=== PATIENT | female | born 1985 | race Caucasian/White ===

== ENCOUNTER 2019-11-14 11:54 | Outpatient (RCR) | payer OTHER, SELFPAY ==
[2019-09-25 08:55] LABS: Hematocrit 34.8 % (37.0-47.0); Hemoglobin 11.5 g/dL (12.0-15.0)
[2019-09-25 09:07] LABS: Glucose 1 Hour PP 50gm Dose 124 mg/dL
[2019-09-25 09:47] LABS: HIV 1/2 Ab P24 Ag Result Negative (Negative)
[2019-09-25] MEDS: RHO(D) IMMUNE GLOBULIN 300 MCG SYRINGE IM (13:54)
[2019-11-14 12:28] LABS: Basophils Percent Auto 0.3 % (0.2-1.2); Eosinophils Absolute Auto 0.1 K/mm3 (0-0.3); Eosinophils Percent Auto 0.7 % (0-4.4); Hematocrit 35.3 % (37.0-47.0); Immature Granulocyte Absolute 0.06 K/mm3 (0.00-0.031); Immature Granulocyte Percent A 0.6 % (0-0.5); Lymphocytes Absolute Auto 1.53 K/mm3 (0.9-3.2); Lymphocytes Percent Auto 14.2 % (18.3-44.2); Mean Corpuscular Hemoglobin 30.7 pg (26-34); Mean Corpuscular Volume 90.3 fl (80-100); Monocytes Absolute Auto 0.8 K/mm3 (0.1-0.6); Monocytes Percent Auto 7.2 % (2.6-8.5); Neutrophils Absolute Auto 8.3 K/mm3 (1.3-6.7); Platelet Count Result 229 k/mm3 (150-375); Red Blood Count 3.91 M/mm3 (4.2-5.4); Red Cell Distribution Width 14.3 % (11.5-14.5); White Blood Count 10.8 K/mm3 (4.5-10.0)
[2019-11-14 12:42] LABS: Alanine Aminotransferase 10 U/L (4-35); Albumin Level 3.7 g/dL (3.5-5.1); Alkaline Phosphatase 94 U/L (38-126); Anion Gap 6 mmol/L (8-16); Aspartate Amino Transferase 19 U/L (14-36); Bilirubin,Total 0.2 mg/dL (0.2-1.3); Blood Urea Nitrogen 8 mg/dL (7-17); Carbon Dioxide 21 mmol/L (22-30); Chloride 105 mmol/L (98-107); Estimated Glomerular Filt Rate > 60; Glucose 72 mg/dL (65-105); Potassium 4.2 mmol/L (3.4-5.0); Sodium 132 mmol/L (137-145); Uric Acid 3.9 mg/dL (2.5-7.5)
[2019-11-14 13:02] VITALS: BP 123/72
[2019-11-14 13:09] LABS: Add Urine Microscopic? YES; Appearance Urine Clear (Clear); Bilirubin Urine Negative (Negative); Blood Urine Negative (Negative); Color Urine Colorless (Yellow); Glucose Urine UA Negative (Negative); Ketones Urine Trace mg/dL (Negative); Leukocyte Esterase Ur Negative LEU/UL (NEGATIVE); Mucus Urine Rare /lpf; Nitrate Urine Negative (Negative); Protein Urine Negative (Negative); RBC Urine 0-2 /hpf (0-2); Specific Grav Ur 1.008 (1.001-1.035); Squamous Epithelial Cell Urine Occasional /hpf (Few); Urobilinogen Urine Negative mg/dL (<2.0); WBC Urine 0-3 /hpf (0-3)
[2019-11-14 13:17] LABS: Creatinine Urine 29.1 mg/dL; Total Protein Urine Random 12 mg/dL
== END 2019-12-24 23:59 | disposition home or self-care (01) ==
LOC: ANHLAB 11:54
PROVIDERS: PCP Family Medicine; Visit Provider Obstetrics & Gynecology
DX: Z29.13 Encounter for prophylactic Rho(D) immune globulin (principal); Z11.4 Encounter for screening for human immunodeficiency virus [HIV]; O36.0990 Maternal care for other rhesus isoimmunization, unspecified trimester, not applicable or unspecified; Z3A.00 Weeks of gestation of pregnancy not specified
CPT/HCPCS: 36415; 59025; 80053; 81001; 82570; 82947; 84156; 84550; 85014; 85018; 85025; 85461; 86703; 87086; 90384; 96372; G0432; J2790

== ENCOUNTER 2019-12-04 18:58 | Inpatient (IN) | payer OTHER, SELFPAY ==
[2019-12-04] VITALS (13 sets, daily range): BP systolic 91–132; BP diastolic 61–79; PULSE 81–98; TEMP 36.1–36.2; BMI 35.5
[2019-12-04] MEDS: DINOPROSTONE 10 MG VAG INSERT VAGINAL (20:43)
[2019-12-04 20:49] LABS: Basophils Percent Auto 0.3 % (0.2-1.2); Eosinophils Absolute Auto 0.1 K/mm3 (0-0.3); Eosinophils Percent Auto 0.7 % (0-4.4); Hematocrit 35.8 % (37.0-47.0); Hemoglobin 11.9 g/dL (12.0-15.0); Immature Granulocyte Absolute 0.07 K/mm3 (0.00-0.031); Immature Granulocyte Percent A 0.7 % (0-0.5); Lymphocytes Percent Auto 16.9 % (18.3-44.2); Mean Corpuscular HGB Conc 33.2 g/dl (32-36); Mean Corpuscular Hemoglobin 30.1 pg (26-34); Mean Corpuscular Volume 90.4 fl (80-100); Mean Platelet Volume 10.5 fl (7.4-10.4); Monocytes Absolute Auto 0.8 K/mm3 (0.1-0.6); Monocytes Percent Auto 7.6 % (2.6-8.5); Neutrophils Absolute Auto 7.9 K/mm3 (1.3-6.7); Neutrophils Percent Auto 73.8 % (45.5-73.1); Platelet Count Result 232 k/mm3 (150-375); Red Blood Count 3.96 M/mm3 (4.2-5.4); White Blood Count 10.7 K/mm3 (4.5-10.0)
--- NOTE | 2019-12-04 23:10 | LDADM ---
This patient, Kiki Ferrer, was admitted to Labor/Delivery/Recovery 109 on 12/04/19 at 18:58. Plans for labor, pain management and were discussed with patient. Patient/family oriented to hospital policies and general routines including ID bracelet, bed and alarms, visiting hours, pain management, procedures, bathroom and other care routines, personal items, smoking policy, room service/diet and guest tray routines, security routines, and visiting hours. Patient/Family are encouraged to report perceived risks to care and to ask questions if they do not understand what they are told or what they should do. See OBIX for further documentation.
[2019-12-05] VITALS (71 sets, daily range): BP systolic 79–142; BP diastolic 61–93; PULSE 69–173; RESP 16; TEMP 36.3–36.7; O2SAT 91–100
[2019-12-05] MEDS: OXYTOCIN 30 UNITS/NS 500 ML 30 UNITS/500 ML BAG IV CONT (05:24)
[2019-12-05] MEDS: LACTATED RINGERS 1,000 ML 125 ML IV CONT ×2 (05:24→08:15)
--- NOTE | 2019-12-05 06:25 | WPDANESEPPF ---
Anes - Initial Pre Proc Eval Procedure: labor epidural Date/Time: 12/05/19 06:25 Surgeon: Berhane Amezquita MD Pre Op Diagnosis: labor pain Pre Op Diagnosis: IOL Patient Data Age: 34 Gender: F Height: 1.63 m Weight: 94 kg Last Vital Signs Temp 36.3 C L 12/05/19 05:26 Pulse 73 12/05/19 06:15 BP 122/73 12/05/19 06:15 Allergies Allergy/AdvReac Type Severity Reaction Status Date / Time No Known Allergies Allergy Verified 11/07/19 15:29 Home Medications Medication Instructions Recorded Confirmed Type PNV cmb#95-ferrous fumarate-FA 1 tablet PO DAILY 04/16/19 12/04/19 History [] Laboratory Tests 12/04/19 12/04/19 12/04/19 20:42 20:42 20:42 WBC 10.7 K/mm3 H K/mm3 (4.5-10.0) RBC 3.96 M/mm3 L M/mm3 (4.2-5.4) Hgb 11.9 g/dL L g/dL (12.0-15.0) Hct 35.8 % L % (37.0-47.0) MCV 90.4 fl fl (80-100) MCH 30.1 pg pg (26-34) MCHC 33.2 g/dl g/dl (32-36) RDW 14.0 % % (11.5-14.5) Plt Count 232 k/mm3 k/mm3 (150-375) MPV 10.5 fl H fl (7.4-10.4) Immature Gran % (Auto) 0.7 % H % (0-0.5) Neut % (Auto) 73.8 % H % (45.5-73.1) Lymph % (Auto) 16.9 % L % (18.3-44.2) Vilas % (Auto) 7.6 % % (2.6-8.5) Eos % (Auto) 0.7 % % (0-4.4) Baso % (Auto) 0.3 % % (0.2-1.2) Lymph # (Auto) 1.80 K/mm3 K/mm3 (0.9-3.2) Vilas # (Auto) 0.8 K/mm3 H K/mm3 (0.1-0.6) Eos # (Auto) 0.1 K/mm3 K/mm3 (0-0.3) Baso # (Auto) 0.0 K/mm3 K/mm3 (0.0-0.1) Abs Immat Gran (auto) 0.07 K/mm3 H K/mm3 (0.00-0.031) Absolute Neuts (auto) 7.9 K/mm3 H K/mm3 (1.3-6.7) Absolute Nucleated RBC 0.0 K/mm3 K/mm3 (0.0-0.012) Nucleated RBC % 0.0 % % (0.0-0.2) RPR Pending Blood Type A Negative Antibody Screen Negative Patient hx anesthesia problems: none Family hx anesthesia problems: none PMFSH Past Medical History Medical History Arm fracture, left Meningitis Subchorionic hematoma UTI (urinary tract infection) Wrist fracture Multiple Surgical History Surgical History Hx of tonsillectomy Family History Family History Grandparent Breast cancer Diabetes mellitus Pancreatic cancer Lung cancer Social History Social History Years smoked: 10 Smoking status: Former smoker Alcohol intake: current Substance use: never Gender identity (if verbalized by the patient): Female Spiritual care concerns: No Anes - Eval Final PreProcedure Day of Procedure 12/05/19 06:25 Patient weight: obese Heart: regular rate and rhythm Lungs: clear to auscultation and normal air movement Airway: Mallampati scale class II Neurological: alert and oriented ASA classification: III Anesthetic plan: proceed Anesthesia type and monitoring: regional epidural and standard monitoring Informed Consent: The patient's anesthetic plan and its attendant risks and benefits were discussed with the patient/family/POA. Questions were solicited and answers provided to the satisfaction of the patient/family/POA.
[2019-12-05 10:03] LABS: Rapid Plasma Reagin Non-Reactive (NonReactive)
--- NOTE | 2019-12-05 10:44 | WPDHPUPDATE1 ---
History and Physical Update Update Date/Time: 12/05/19 10:44 History and Physical has been reviewed, including an updated exam of the patient. There are NO changes in the patient's condition. Risks, benefits, and alternatives have been discussed and questions answered. Patient agrees to proceed with procedure.
--- NOTE | 2019-12-05 10:44 | WPDOBADMIT ---
Obstetrics - Admit Note Admission Note: record reviewed. No pertinent additions to the history and/or any subsequent changes in the physical findings that are not consistent with the expected course of the were found. Additions to the history and/or subsequent changes in the physical findings follow. None.
--- NOTE | 2019-12-05 10:44 | PM.OBPRVD ---
OB - Delivery Note Procedure Route of delivery: Laceration description: Perineal - 1st Degree Delivery repair: chromic Specimen: No Estimated blood loss (mL): 400 Anesthesia type: Epidural Disposition: floor Narrative: Patient prepped and draped in manner for this procedure. Maternal expulsive efforts readily delivered vertex and the rest of baby was delivered as well. Cord was clamped and cut and placenta delivered spontaneously. Cervix vagina and vulva were inspected no significant lacerations or tears other than a first-degree vaginal wall laceration which was rendered hemostatic using 2 0 chromic [id number] suture. This point seizure was considered terminated immediate postop condition of mother and baby both excellent. Baby Weeks of gestation at delivery: 39 gender: Female Weight (pounds): 7 Weight (ounces): 10 score one minute: 9 score five minutes: 9
[2019-12-05] MEDS: OXYTOCIN 30 UNITS/NS 500 ML 30 UNITS/500 ML BAG 125 UNITS IV CONT (10:45)
[2019-12-05] MEDS: BENZOCAINE 20% AER SPR (*SP) 56 GM CAN 1 SPRAY TOPICAL (12:03)
[2019-12-05] MEDS: WITCH HAZEL 40 PADS 1 PAD TOPICAL (12:03)
--- NOTE | 2019-12-05 13:40 | PC.NURSE ---
Mother called out for assist with waking for feeding, reporting infant eagerly fed for first feeding. Demonstrated stimulation techniques to wake for feeding. Assisted with to breast. Reviewed positioning/alignment in cross cradle, holding breast in U hold and guided asymmetrical latch on. Discussed rational for each. Several attempts made, infant was sleepy and unable to latch. Advised to skin to skin and attempt again in 30 minutes. Reviewed feeding cues, frequencies, duration of feedings, feeding elimination flow sheet, and signs of adequate intake.
--- NOTE | 2019-12-05 14:50 | PC.NURSE ---
Mother called out for assist with waking for feeding, reporting infant eagerly fed for first feeding. Demonstrated stimulation techniques to wake for feeding. Assisted with to breast. Reviewed positioning/alignment in cross cradle, holding breast in U hold and guided asymmetrical latch on. Discussed rational for each. Several attempts made, infant was sleepy and unable to latch. Attempted with small drips of glucose water. Advised to skin to skin and attempt again in 30 minutes. Reviewed infant feeding cues, frequencies, duration of feedings, feeding elimination flow sheet, and signs of adequate intake.
--- NOTE | 2019-12-05 18:47 | OBPPTRN ---
1245 Patient transferred to post room #281 via W/C. Support person present. Oriented to unit, room, information board, rooming in, admission packet and security measures. Patient verbalizes understanding.
[2019-12-05] MEDS: IBUPROFEN 600 MG TABLET PO (18:57)
[2019-12-06] MEDS: IBUPROFEN 600 MG TABLET PO (04:55)
[2019-12-06 05:41] LABS: Hematocrit 33.5 % (37.0-47.0); Hemoglobin 10.9 g/dL (12.0-15.0)
[2019-12-06 08:00] VITALS: BP 118/79; PULSE 70; RESP 18; TEMP 35.9
--- NOTE | 2019-12-06 08:43 | PM.OBDSVD ---
DS: Admitting Diagnosis Admitting Diagnosis Admitting Diagnosis: IOL OB - DS: Summary OB Procedures : None OB Procedures Intrapartum: Spontaneous Vag Delivery OB Procedures: : None Time Spent with Patient Time attestation: Total time spent providing and/or coordinating discharge services: DS: Data Data Completed and Pending Labs on day of discharge: Labs from last 24 hours 12/06/19 12/06/19 12/04/19 05:00 05:00 20:42 Hgb 10.9 L Hct 33.5 L RPR Non-reactive Blood Type A Negative Antibody Screen TNP Screen Negative Baby's Blood Type Ab pos Baby's ANNE-MARIE Negative Doses of RhIg Required 1 Discharge Plan Discharge Discharging Clinician: Berhane Amezquita Patient Disposition: Home, Self-Care Activity: as tolerated Diet: as tolerated Patient Instructions: Antibiotic Form Stand Alone Forms: General Discharge Information Follow-up/Referrals: Berhane Amezquita MD [Physician] - 3 Weeks Discharge Medications: Continued PNV cmb#95-ferrous fumarate-FA [] 28 mg iron- 800 mcg Tablet 1 tablet PO DAILY RF: 0 Date of admission: 12/04/19 18:58 Primary Care Provider: Otilio,[place] Adam Admitting Provider: Berhane Amezquita Attending physician on admission: Berhane Amezquita
[2019-12-06] MEDS: MULTIVIT/MIN/PREN/FOL AC/IRON TABLET 1 TAB PO (08:58)
--- NOTE | 2019-12-06 09:32 | WPDANLDPN2 ---
Anes-Prog Note L&D Date/Time: 12/06/19 09:32 Comfortable throughout: labor and delivery Neuraxial method: epidural Epidural/Spinal procedure site: clean & non-tender Neuro status: Neuro function grossly intact. Cardiovascular status: normal Respiratory status: normal Airway patency: baseline Mental status: baseline Post-Op hydration status: normal Vital Signs: Last Vital Signs Temp 36.7 C 12/05/19 20:05 Pulse 89 12/05/19 20:05 Resp 16 12/05/19 20:05 BP 124/72 12/05/19 20:05 Pulse Ox 99 12/05/19 20:05 Pain score (VAS): 0/10 Post-procedural complaints: none Patient feedback: Patient satisfied with anesthetic care.
[2019-12-06] MEDS: TETANUS,DIPHTHERIA,AC PERTUSSIS ADULT (0.5 ML) BOOSTRIX IM (10:11)
[2019-12-06] MEDS: RHO(D) IMMUNE GLOBULIN 300 MCG SYRINGE IM (10:43)
--- NOTE | 2019-12-06 11:30 | PC.NURSE ---
Observed mother is able to independently latch with appropriate positioning/alignment. She denies any nipple discomfort, is feeding as required and waking infant to feed if needed. has had at least 8 effective feedings in the past 24 hours, and is currently meeting outcomes for weight, output, jaundice and feeding frequencies. Mother states she feels confident to continue effective at home. Reviewed transition to breast milk, signs of adequate intake, and engorgement/relief. Instructed to call ICP if intake/output less than required. Reviewed regular medications mother is taking. Information provided per Lashawn. Reviewed community resources on the [facility] website and in the Mom/Baby guide. Information on outpatient services provided. Mother has no further questions at this time.
[2019-12-07 10:05] VITALS: BP 128/78; PULSE 72; RESP 20; TEMP 36.9; O2SAT 99
--- NOTE | 2019-12-08 08:04 | PM.OBDSVD ---
DS: Admitting Diagnosis Admitting Diagnosis Admitting Diagnosis: IOL OB - DS: Summary OB Procedures : None OB Procedures Intrapartum: Spontaneous Vag Delivery OB Procedures: : None Time Spent with Patient Time attestation: Total time spent providing and/or coordinating discharge services: DS: Data Data Completed and Pending Labs on day of discharge: Labs from last 24 hours 12/06/19 05:00 Blood Type A Negative Antibody Screen TNP Screen Negative Baby's Blood Type Ab pos Baby's ANNE-MARIE Negative Doses of RhIg Required 1 Discharge Plan Discharge Discharging Clinician: Berhane Amezquita Patient Disposition: Home, Self-Care Activity: as tolerated Diet: as tolerated Discharge Instructions: Education: Mom and Baby Guide Given to: Mother Follow-Up: Call your delivering provider's office for an appointment to be seen in: 3 weeks. Mom and baby [facility] come to [facility] for the follow-up appointment. Appointment Date/Time: December 07, 2019 at 10:00 am What to expect at your follow-up visit: Physical Assessment Call [phone] if you are unable to keep your appointment time. BREAST CARE: * Wear a snug supportive bra. * For engorgement discomfort: Breast Feeding: * Apply warm moist washcloths * Express milk as needed to relieve engorgement * Wear loose clothing * For sore nipples: * Identify correct latch-on * Apply warm moist washcloths before and after nursing * Air dry nipples after nursing * May apply Lansinoh cream to nipples EPISIOTOMY/PERINEAL CARE: * Until bleeding stops, use your katherine bottle after urinating * Change your pad frequently throughout the day * You may take sitz baths several times a day (fill your bathtub with warm water and soak for 20 minutes.) Do NOT bathe in the water * No tub baths until seen by your physician - You may shower ACTIVITY: * Rest as much as possible. * Do not exercise or lift anything heavier than your baby (such as laundry or other children.) * Avoid stairs or driving as much as possible. * Do not put anything into the vagina. No douching, tampons, or sexual activity until seen by physician. NOTIFY PHYSICIAN IF YOU HAVE ANY QUESTIONS OR IF ANY OF THE FOLLOWING SYMPTOMS OCCUR: * If your perineum becomes red, swollen, or more painful than what you have experienced in the hospital. * If your vaginal bleeding becomes foul smelling. * If your vaginal bleeding becomes more heavy than a period or if your bleeding changes from pink to bright red. However, you may pass an occasional walnut-sized clot once or twice for the first week . * If you experience a sharp, shooting pain in you calves. * If you discover a hard, reddened area on your breast or if you experience flu-like symptoms. DIET: * Eat regular, well-balanced meals. * Drink plenty of fluids daily. If , drink to thirst. Stand Alone Forms: General Discharge Information Follow-up/Referrals: Berhane Amezquita MD [Physician] - 3 Weeks Discharge Medications: Continued PNV cmb#95-ferrous fumarate-FA [] 28 mg iron- 800 mcg Tablet 1 tablet PO DAILY RF: 0 Date of admission: 12/04/19 18:58 Primary Care Provider: OtilioJ[place]ica Admitting Provider: Berhane Amezquita Discharge Date/Time: 12/06/19 12:37 Attending physician on admission: Berhane Amezquita
--- NOTE | 2019-12-12 12:43 | PM.OBDSVD ---
DS: Admitting Diagnosis Admitting Diagnosis Admitting Diagnosis: IOL OB - DS: Summary OB Procedures : None OB Procedures Intrapartum: Spontaneous Vag Delivery OB Procedures: : None Time Spent with Patient Time attestation: Total time spent providing and/or coordinating discharge services: Discharge Plan Discharge Discharging Clinician: Berhane Amezquita Patient Disposition: Home, Self-Care Activity: as tolerated Diet: as tolerated Discharge Instructions: Education: Mom and Baby Guide Given to: Mother Follow-Up: Call your delivering provider's office for an appointment to be seen in: 3 weeks. Mom and baby should come to the [facility] for the follow-up appointment. Appointment Date/Time: December 07, 2019 at 10:00 am What to expect at your follow-up visit: Physical Assessment Call [phone] if you are unable to keep your appointment time. BREAST CARE: * Wear a snug supportive bra. * For engorgement discomfort: Breast Feeding: * Apply warm moist washcloths * Express milk as needed to relieve engorgement * Wear loose clothing * For sore nipples: * Identify correct latch-on * Apply warm moist washcloths before and after nursing * Air dry nipples after nursing * May apply Lansinoh cream to nipples EPISIOTOMY/PERINEAL CARE: * Until bleeding stops, use your katherine bottle after urinating * Change your pad frequently throughout the day * You may take sitz baths several times a day (fill your bathtub with warm water and soak for 20 minutes.) Do NOT bathe in the water * No tub baths until seen by your physician - You may shower ACTIVITY: * Rest as much as possible. * Do not exercise or lift anything heavier than your baby (such as laundry or other children.) * Avoid stairs or driving as much as possible. * Do not put anything into the vagina. No douching, tampons, or sexual activity until seen by physician. NOTIFY PHYSICIAN IF YOU HAVE ANY QUESTIONS OR IF ANY OF THE FOLLOWING SYMPTOMS OCCUR: * If your perineum becomes red, swollen, or more painful than what you have experienced in the hospital. * If your vaginal bleeding becomes foul smelling. * If your vaginal bleeding becomes more heavy than a period or if your bleeding changes from pink to bright red. However, you may pass an occasional walnut-sized clot once or twice for the first week . * If you experience a sharp, shooting pain in you calves. * If you discover a hard, reddened area on your breast or if you experience flu-like symptoms. DIET: * Eat regular, well-balanced meals. * Drink plenty of fluids daily. If , drink to thirst. Stand Alone Forms: General Discharge Information Follow-up/Referrals: Berhane Amezquita MD [Physician] - 3 Weeks Discharge Medications: Continued PNV cmb#95-ferrous fumarate-FA [] 28 mg iron- 800 mcg Tablet 1 tablet PO DAILY RF: 0 Date of admission: 12/04/19 18:58 Primary Care Provider: Otilio,[place] Adam Admitting Provider: Berhane Amezquita Discharge Date/Time: 12/06/19 12:37 Attending physician on admission: Berhane Amezquita
--- NOTE | 2019-12-14 13:27 | P.DS_ITS ---
DS: Admitting Diagnosis Admitting Diagnosis Admitting Diagnosis: IOL OB - DS: Summary OB Procedures : None OB Procedures Intrapartum: Spontaneous Vag Delivery OB Procedures: : None Time Spent with Patient Time attestation: Total time spent providing and/or coordinating discharge services: Discharge Plan Discharge Discharging Clinician: Berhane Amezquita Patient Disposition: Home, Self-Care Activity: as tolerated Diet: as tolerated Discharge Instructions: Education: Mom and Baby Guide Given to: Mother Follow-Up: Call your delivering provider's office for an appointment to be seen in: 3 weeks. Mom and baby should come to the [facility] for the follow-up appointment. Appointment Date/Time: December 07, 2019 at 10:00 am What to expect at your follow-up visit: Physical Assessment Call [phone] if you are unable to keep your appointment time. BREAST CARE: * Wear a snug supportive bra. * For engorgement discomfort: Breast Feeding: * Apply warm moist washcloths * Express milk as needed to relieve engorgement * Wear loose clothing * For sore nipples: * Identify correct latch-on * Apply warm moist washcloths before and after nursing * Air dry nipples after nursing * May apply Lansinoh cream to nipples EPISIOTOMY/PERINEAL CARE: * Until bleeding stops, use your katherine bottle after urinating * Change your pad frequently throughout the day * You may take sitz baths several times a day (fill your bathtub with warm water and soak for 20 minutes.) Do NOT bathe in the water * No tub baths until seen by your physician - You may shower ACTIVITY: * Rest as much as possible. * Do not exercise or lift anything heavier than your baby (such as laundry or other children.) * Avoid stairs or driving as much as possible. * Do not put anything into the vagina. No douching, tampons, or sexual activity until seen by physician. NOTIFY PHYSICIAN IF YOU HAVE ANY QUESTIONS OR IF ANY OF THE FOLLOWING SYMPTOMS OCCUR: * If your perineum becomes red, swollen, or more painful than what you have experienced in the hospital. * If your vaginal bleeding becomes foul smelling. * If your vaginal bleeding becomes more heavy than a period or if your bleeding changes from pink to bright red. However, you may pass an occasional walnut- sized clot once or twice for the first week . * If you experience a sharp, shooting pain in you calves. * If you discover a hard, reddened area on your breast or if you experience flu- like symptoms. DIET: * Eat regular, well-balanced meals. * Drink plenty of fluids daily. If , drink to thirst. Stand Alone Forms: General Discharge Information Follow-up/Referrals: Berhane Amezquita MD [Physician] - 3 Weeks Discharge Medications: Continued PNV cmb#95-ferrous fumarate-FA [] 28 mg iron- 800 mcg Tablet 1 tablet PO DAILY RF: 0 Date of admission: 12/04/19 18:58 Primary Care Provider: Otilio,J[place] Adam Admitting Provider: Berhane Amezquita Interventions: Discharge Disposition Last Done: 12/06/19 12:37 Discharge Date/Time: 12/06/19 12:37 Attending physician on admission: Berhane Amezquita Condition: Stable
== END 2019-12-06 12:37 | disposition home or self-care (01) | DRG 807 ==
LOC: ANHLDR 19:11 → ANHOB2 12-05 12:50
PROVIDERS: Admitting Provider Obstetrics & Gynecology; PCP Family Medicine; Visit Provider Obstetrics & Gynecology
DX: O99.214 Obesity complicating childbirth (principal); Z37.0 Single live birth; Z3A.39 39 weeks gestation of pregnancy; Z23 Encounter for immunization; E66.9 Obesity, unspecified; O70.0 First degree perineal laceration during delivery
CPT/HCPCS: 36415; 85014; 85018; 85025; 85461; 86592; 86850; 86900; 86901; 90384; 90471; 90686; 90715; A9270; G0008; J2590; J2790; J2795; J7120

== ENCOUNTER 2020-01-07 02:38 | Outpatient (CLI) | payer OTHER, SELFPAY ==
[2020-01-07 18:16] LABS: SARS-CoV-2 RNA PCR Negative
== END 2020-01-07 02:39 | disposition home or self-care (01) ==
LOC: ANHCOVIDDT 02:38
PROVIDERS: Anesthesiology; PCP Family Medicine; Visit Provider Obstetrics & Gynecology
DX: Z01.812 Encounter for preprocedural laboratory examination (principal); Z20.828 Contact with and (suspected) exposure to other viral communicable diseases
CPT/HCPCS: 87635; C9803; U0003

== ENCOUNTER 2020-01-09 02:19 | Day surgery (SDC) | payer OTHER, SELFPAY ==
[2019-12-28 10:01] VITALS: BMI 32.1
[2020-01-09] VITALS (9 sets, daily range): BP systolic 100–123; BP diastolic 59–81; PULSE 51–85; RESP 12–18; TEMP 36.4–36.5; O2SAT 96–100
[2020-01-09] MEDS: KETOROLAC 15 MG/ML VIAL (*BKC) IV PUSH (11:18)
[2020-01-09] MEDS: LACTATED RINGERS 1,000 ML 30 ML IV CONT (11:18)
[2020-01-09] MEDS: ACETAMINOPHEN 500 MG TABLET 1000 MG PO (11:18)
--- NOTE | 2020-01-09 11:44 | PM.IMHP ---
H&P: HPI History of Present Illness Date/Time: 01/09/20 11:44 Chief complaint: Desires Sterilization Narrative: Kiki Ferrer is a 34 year old female Presents for permanent sterilization. We will be proceeding with bilateral salpingectomy per laparoscopic exam. We discussed the permanence failure rate and increased risk of regret she states good understanding and strongly desires to proceed. Review of Systems Review of Systems: All systems reviewed & are unremarkable except as noted in HPI and below PMFSH Past Medical History Medical History (Updated 01/09/20 @ 11:46 by Berhane Amezquita MD) Arm fracture, left Meningitis Subchorionic hematoma UTI (urinary tract infection) Wrist fracture Multiple Surgical History Surgical History Hx of tonsillectomy Family History Family History Grandparent Breast cancer Diabetes mellitus Pancreatic cancer Lung cancer Social History Social History Years smoked: 10 Smoking status: Never smoker Alcohol intake: current Substance use: never Substance use type: does not use Living arrangements: with family Gender identity (if verbalized by the patient): Female Spiritual care concerns: No Meds Home Medications and Allergies Home Medications Medication Instructions Recorded Confirmed Type PNV cmb#95-ferrous fumarate-FA 1 tablet PO DAILY 04/16/19 12/28/19 History [] Allergies Allergy/AdvReac Type Severity Reaction Status Date / Time No Known Allergies Allergy Verified 12/28/19 10:00 Exam Const: General: cooperative and healthy appearing Resp: Effort & Inspection: normal respiratory effort Cardio: Rate: regular rate Rhythm: regular rhythm GI: Inspection: normal to inspection Auscultation: normal bowel sounds : Speculum Exam - Cervix: normal appearance of the cervix Bimanual exam- vagina & uterus: normal bimanual exam Bimanual Exam- Adnexa, other: normal adnexae Assessment and Plan Assessment and plan (1) Encounter for female sterilization procedure: Code(s): Z30.2 - Encounter for sterilization Status: Acute Additional Plan proceed with laparoscopic bilateral salpingectomy
--- NOTE | 2020-01-09 11:49 | WPDHPUPDATE1 ---
History and Physical Update Update Date/Time: 01/09/20 11:49 History and Physical has been reviewed, including an updated exam of the patient. There are NO changes in the patient's condition. Risks, benefits, and alternatives have been discussed and questions answered. Patient agrees to proceed with procedure.
--- NOTE | 2020-01-09 12:10 | WPDANESEPPF ---
Anes - Initial Pre Proc Eval Procedure: Operation Date: 01/09/20 12:45 Proposed Procedures p Laparoscopic Bilateral Salpingectomy - Berhane Amezquita MD Date/Time: 01/09/20 12:10 Surgeon: Berhane Amezquita MD Pre Op Diagnosis: Desires Sterilization Patient Data Age: 34 Gender: F Height: 5 ft 4 in Weight: 85 kg Allergies Allergy/AdvReac Type Severity Reaction Status Date / Time No Known Allergies Allergy Verified 12/28/19 10:00 Home Medications Medication Instructions Recorded Confirmed Type PNV cmb#95-ferrous fumarate-FA 1 tablet PO DAILY 04/16/19 12/28/19 History [] Patient hx anesthesia problems: none Family hx anesthesia problems: none PMFSH Past Medical History Medical History (Updated 01/09/20 @ 11:46 by Berhane Amezquita MD) Arm fracture, left Meningitis Subchorionic hematoma UTI (urinary tract infection) Wrist fracture Multiple Surgical History Surgical History Hx of tonsillectomy Family History Family History Grandparent Breast cancer Diabetes mellitus Pancreatic cancer Lung cancer Social History Social History Years smoked: 10 Smoking status: Never smoker Alcohol intake: current Substance use: never Substance use type: does not use Living arrangements: with family Gender identity (if verbalized by the patient): Female Spiritual care concerns: No Anes - Eval Final PreProcedure Day of Procedure 01/09/20 12:10 Patient weight: overweight Heart: regular rate and rhythm Lungs: clear to auscultation Airway: Mallampati scale class II Neurological: alert and oriented Last oral intake: >/= 8 hours ASA classification: II Emergent: no Anesthetic plan: proceed Anesthesia type and monitoring: general ETT and standard monitoring Informed Consent: The patient's anesthetic plan and its attendant risks and benefits were discussed with the patient/family/POA. Questions were solicited and answers provided to the satisfaction of the patient/family/POA.
--- NOTE | 2020-01-09 13:24 | PM.OP ---
Procedure Note - Brief Procedure Note - Brief Date of procedure: 01/09/20 Pre-op diagnosis: Desires Sterilization Post-op diagnosis: same Procedure performed: Laparoscopic bilateral salpingectomy Description of procedure: Patient prepped and draped in usual manner for this procedure. Cervical instruments were placed for uterine mobility later in the case. Abdominal trocar sites were placed under direct visualization and instruments were placed through without difficulty. Mesial salpinx bilaterally was cauterized and cut using the Harmonic scalpel and the tubal segments were removed. Mesial salpinx hemostatic bilaterally at this point seizure was considered terminated. Gas was allowed to escape incisions approximated using 4 0 Monocryl. Anesthesia: GETA Surgeon: Berhane Amezquita MD Estimated blood loss (mL): 5 Drains: No Packing: No Pathology: yes Complications: No immediate complications Condition: stable Disposition: PACU Findings: Uterus tubes and ovaries without abnormalities noted. Appendix also noted to be normal anatomically.
[2020-01-09] MEDS: fentaNYL CITRATE INJ (*CRX) 100 MCG/2 ML VIAL 25 MCG IV PUSH ×5 (13:49→14:13)
[2020-01-09] MEDS: oxyCODONE HCL (*CRX) 5 MG TAB IR PO (14:46)
== END 2020-01-09 15:48 | disposition home or self-care (01) ==
PROVIDERS: PCP Family Medicine; Visit Provider Obstetrics & Gynecology
PROC: (CPT 49320; principal; 2020-01-09 12:45)
DX: Z30.2 Encounter for sterilization (principal)
CPT/HCPCS: 58661; 88302; A9270; J1100; J1885; J2250; J2405; J2704; J3010; J7120

== ENCOUNTER 2020-01-10 06:07 | Emergency (ER) | payer OTHER, SELFPAY ==
--- NOTE | ~2020-01-10 | US_ITS ---
EXAMINATION: US pelvic complete DATE: 01/10/2020 08:54 INDICATION: Vaginal bleeding status post tubal ligation TECHNIQUE: Multiple transabdominal and endovaginal sonographic images of the pelvis were obtained. COMPARISON: None. FINDINGS: The uterus measures 8.2 x 6.0 x 5.0 cm. The endometrial complex measures 11.2 mm. The left ovary is not visualized however no left adnexal abnormality is seen. The right ovary measures 2.0 x 2 .9 x 2.8 cm. There is normal vascular flow in the right ovary. There is no free fluid in the pelvis. IMPRESSION: 1. No sonographic correlate for the patient's symptoms. Reviewed, dictated and finalized at location A.
[2020-01-10 06:08] VITALS: BP 126/108; PULSE 104; RESP 16; TEMP 36.6; O2SAT 99
[2020-01-10 06:54] VITALS: BP 121/67; BP 125/89
[2020-01-10 06:55] VITALS: BP 122/74
--- NOTE | 2020-01-10 07:37 | ED.FEMALEGU ---
HPI - Female Genitourinary General Chief complaint: Vaginal Bleeding Stated complaint: tubal ligation/bleeding Time Seen by Provider: 01/10/20 07:31 Source: patient and family Mode of arrival: ambulatory Limitations: no limitations History of Present Illness HPI Narrative: 34 years old white female presents with vaginal bleeding, heavy, blood clots started 6 PM, 5 hours after bilateral tubal ligation. Patient is 2, para 2, 0, status post vaginal delivery on December 05, 2019. Patient reports starting having slight vaginal bleeding like it. Yesterday morning before the procedure. And the procedure was laparoscopy Patient denies any fever, chills, nausea, vomiting, abdominal pain, chest pain or shortness of breath. Related Data Home Medications Medication Instructions Recorded Confirmed PNV cmb#95-ferrous fumarate-FA 1 tablet PO DAILY 04/16/19 01/09/20 [] Allergies Allergy/AdvReac Type Severity Reaction Status Date / Time No Known Allergies Allergy Verified 01/09/20 12:51 Review of Systems Review of Systems: Narrative: CONSTITUTIONAL: Denies fever, chills, or sweats. EYES: Denies visual changes, redness, or discharge. ENT: Denies rhinorrhea, congestion, sore throat, or otalgia. CARDIOVASCULAR: Denies chest pain, palpitations, or edema. RESPIRATORY: Denies cough or dyspnea. GASTROINTESTINAL: Denies abdominal pain, nausea, vomiting, or diarrhea. GENITOURINARY: Denies dysuria or hematuria. SKIN: Denies rash or itching. MUSCULOSKELETAL: Denies back pain, joint pain, or myalgia. NEUROLOGIC: Denies headache, numbness, or weakness. PSYCHIATRIC: Denies anxiety or depression. [facility] Past Medical History Medical History (Updated 01/10/20 @ 09:24 by Black Burciaga MD) Arm fracture, left Meningitis Subchorionic hematoma UTI (urinary tract infection) Wrist fracture Multiple Surgical History Surgical History Hx of tonsillectomy Family History Family History Grandparent Breast cancer Diabetes mellitus Pancreatic cancer Lung cancer Social History Social History Years smoked: 10 Smoking status: Never smoker Alcohol intake: current Substance use: never Substance use type: does not use Gender identity (if verbalized by the patient): Female Spiritual care concerns: No Exam Narrative: Exam Narrative: General appearance: Well-developed, well-nourished Skin: Normal color Head: Normocephalic, nontraumatic Eyes: Clear conjunctiva ENT: Oropharynx normal, ears normal, nose normal Neck: Supple, nontender Chest and respiratory: Airway patent, no respiratory distress, no accessory muscle use Heart: Regular rate/rhythm Abdomen: Soft, nontender, no organomegaly, quiet bowel sounds Vascular: Normal peripheral pulses, normal capillary refill. Musculoskeletal: Normal range of motion, nontender back Neurologic: Alert and oriented ?3, [employer] ESTIMATING [employer]ERK is normal as tested, no gross motor deficit : External Female Exam: normal external appearance Speculum Exam - Vagina: normal appearance of the vagina, tenderness and other (Large blood clot in the vaginal pouch, was pulled out, no active bleeding,) Speculum Exam - Cervix: normal appearance of the cervix Course Course Emergency Course: Stable Consultations Consultation #1: Dr. Miranda Date: 01/10/20 Time: 09:26 Vital Signs Vital signs: Vital Signs Temperature 36.6 C 01/10/20 06:08 Pulse Rate 104 H 01/10/20 06:08 Respiratory Rate 16 01/10/20 06:08 Blood Pressure 126/108 H 01/10/20 06:08
[2020-01-10] MEDS: SODIUM CHLORIDE 0.9% IV 1,000 ML 999 ML IV CONT (08:01)
[2020-01-10 08:32] LABS: Basophils Percent Auto 0.1 % (0.2-1.2); Hematocrit 42.2 % (37.0-47.0); Hemoglobin 13.7 g/dL (12.0-15.0); Immature Granulocyte Absolute 0.08 K/mm3 (0.00-0.031); Immature Granulocyte Percent A 0.5 % (0-0.5); Lymphocytes Absolute Auto 1.92 K/mm3 (0.9-3.2); Lymphocytes Percent Auto 12.2 % (18.3-44.2); Mean Corpuscular HGB Conc 32.5 g/dl (32-36); Mean Corpuscular Hemoglobin 29.5 pg (26-34); Mean Corpuscular Volume 90.8 fl (80-100); Mean Platelet Volume 11.1 fl (7.4-10.4); Monocytes Absolute Auto 0.7 K/mm3 (0.1-0.6); Monocytes Percent Auto 4.5 % (2.6-8.5); Neutrophils Percent Auto 82.7 % (45.5-73.1); Platelet Count Result 355 k/mm3 (150-375); Red Blood Count 4.65 M/mm3 (4.2-5.4); Red Cell Distribution Width 13.4 % (11.5-14.5); White Blood Count 15.7 K/mm3 (4.5-10.0)
[2020-01-10 09:35] VITALS: BP 112/73; PULSE 66; RESP 16; O2SAT 99
== END 2020-01-10 09:35 | disposition home or self-care (01) ==
PROVIDERS: General Practice; Emergency Provider Emergency Medicine; PCP Family Medicine
DX: N93.9 Abnormal uterine and vaginal bleeding, unspecified (principal); Z98.51 Tubal ligation status; Z98.890 Other specified postprocedural states
CPT/HCPCS: 36415; 76856; 81025; 85025; 86850; 86880; 86900; 86901; 86902; 96360; 99284; J7030

== ENCOUNTER → 2020-08-05 01:34 | Outpatient (CLI) | payer OTHER, SELFPAY ==
[2020-08-05 18:55] LABS: SARS-CoV-2 RNA PCR Negative
== END ==
PROVIDERS: PCP Family Medicine; Visit Provider Obstetrics & Gynecology
DX: Z01.812 Encounter for preprocedural laboratory examination (principal); Z20.822 Contact with and (suspected) exposure to COVID-19
CPT/HCPCS: C9803; U0003; U0005

== ENCOUNTER 2020-08-05 08:18 | Outpatient (CLI) | payer OTHER, SELFPAY ==
[2020-08-05 09:15] LABS: Basophils Absolute Auto 0.1 K/mm3 (0.0-0.1); Basophils Percent Auto 0.8 % (0.2-1.2); Eosinophils Absolute Auto 0.1 K/mm3 (0-0.3); Eosinophils Percent Auto 1.2 % (0-4.4); Hematocrit 45.7 % (37.0-47.0); Hemoglobin 14.8 g/dL (12.0-15.0); Immature Granulocyte Absolute 0.03 K/mm3 (0.00-0.031); Immature Granulocyte Percent A 0.4 % (0-0.5); Lymphocytes Absolute Auto 2.29 K/mm3 (0.9-3.2); Lymphocytes Percent Auto 29.6 % (18.3-44.2); Mean Corpuscular HGB Conc 32.4 g/dl (32-36); Mean Corpuscular Volume 89.4 fl (80-100); Mean Platelet Volume 10.3 fl (7.4-10.4); Monocytes Absolute Auto 0.6 K/mm3 (0.1-0.6); Monocytes Percent Auto 7.9 % (2.6-8.5); Neutrophils Absolute Auto 4.7 K/mm3 (1.3-6.7); Neutrophils Percent Auto 60.1 % (45.5-73.1); Platelet Count Result 310 k/mm3 (150-375); Red Blood Count 5.11 M/mm3 (4.2-5.4); Red Cell Distribution Width 13.9 % (11.5-14.5); White Blood Count 7.7 K/mm3 (4.5-10.0)
== END 2020-08-05 08:19 | disposition home or self-care (01) ==
LOC: ANHSURGERY 08:21
PROVIDERS: PCP Family Medicine; Visit Provider Obstetrics & Gynecology
DX: N85.2 Hypertrophy of uterus (principal); Z01.818 Encounter for other preprocedural examination
CPT/HCPCS: 36415; 85025; 86850; 86900; 86901

== ENCOUNTER 2020-08-08 06:07 | Day surgery (SDC) | payer OTHER, SELFPAY ==
[2020-07-31 08:46] VITALS: BMI 32.9
--- NOTE | 2020-08-05 12:51 | PM.IMHP ---
H&P: HPI History of Present Illness Date/Time: 08/05/20 12:51 34-year-old 2 para 2 is admitted for robotic hysterectomy and bilateral salpingectomy. She has also had some right-sided pain and has consented to removal of the right ovary if needed. She has had heavy bleeding and has had chronic deep dyspareunia and dysmenorrhea. The uterus is enlarged and she is status post tubal ligation. She did not like the Nexplanon in the past and did not like manipulation. Risks and benefits were reviewed Chief Complaint: pelvic pain/ dyspareunia / excessive heavy bleeding Review of Systems Review of Systems: All systems reviewed & are unremarkable except as noted in HPI and below PMFSH Past Medical History Medical History Arm fracture, left Meningitis Subchorionic hematoma UTI (urinary tract infection) Wrist fracture Multiple Surgical History Surgical History Hx of tonsillectomy Family History Family History Grandparent Breast cancer Diabetes mellitus Pancreatic cancer Lung cancer Social History Social History Years smoked: 13 Smoking status: Former smoker Smoking end date: 01/23/19 Alcohol intake: current Drinks per week: 5 Substance use: never Substance use type: does not use Gender identity (if verbalized by the patient): Female Spiritual care concerns: No Meds Home Medications and Allergies Home Medications Medication Instructions Recorded Confirmed Type tramadol 50 mg tablet 50 mg PO Q6H PRN 07/25/20 07/31/20 History alprazolam 1 mg PO HS 07/31/20 07/31/20 History bupropion HCl 150 mg PO DAILY 07/31/20 07/31/20 History Allergies Allergy/AdvReac Type Severity Reaction Status Date / Time SURGICAL GLUE AdvReac Severe Hives Uncoded 07/31/20 08:44 Exam Const: General: no acute distress Eyes: General: appearance normal, both eyes and all related structures Neck: Neck: supple and no JVD Thyroid: thyroid normal Resp: Effort & Inspection: normal respiratory effort Auscultation: clear to auscultation bilaterally Cardio: Rate: regular rate Rhythm: regular rhythm GI: Inspection: non-distended GI Palp: Yes Soft to palpation, No Tenderness to palpation present (GI) and No Guarding due to palpation present (GI) Auscultation: normal bowel sounds : General: Yes bladder normal to palpation External Female Exam: normal external appearance Speculum Exam - Vagina: normal appearance of the vagina Speculum Exam - Cervix: normal appearance of the cervix Bimanual exam- vagina & uterus: enlarged and Uterine tenderness Bimanual Exam- Adnexa, other: tender on the right Skin: General skin exam: no rashes or lesions noted Extrem: General: normal to inspection and no edema Psych: Mental Status: mental status grossly normal Affect: normal affect Assessment and Plan Additional Plan impression: Enlarged uterus was resultant pain discomfort dyspareunia Plan: Robotic total vaginal hysterectomy bilateral salpingectomy. Possible right salpingo-oophorectomy
[2020-08-08] VITALS (10 sets, daily range): BP systolic 117–130; BP diastolic 65–88; PULSE 60–98; RESP 13–20; TEMP 36.2–36.9; O2SAT 97–100; BMI 32.5
--- NOTE | 2020-08-08 05:58 | WPDHPUPDATE1 ---
History and Physical Update Update Date/Time: 08/08/20 05:58 History and Physical has been reviewed, including an updated exam of the patient. There are NO changes in the patient's condition. Risks, benefits, and alternatives have been discussed and questions answered. Patient agrees to proceed with procedure.
[2020-08-08] MEDS: ACETAMINOPHEN 500 MG TABLET 1000 MG PO (08:17)
[2020-08-08] MEDS: LACTATED RINGERS 1,000 ML 30 ML IV CONT ×2 (08:40→10:35)
[2020-08-08] MEDS: KETOROLAC 15 MG/ML VIAL (*BKC) IV PUSH (08:43)
--- NOTE | 2020-08-08 08:49 | WPDANESEPPF ---
Anes - Initial Pre Proc Eval Procedure: Operation Date: 08/08/20 09:30 Proposed Procedures p Robotic Assisted Total Vaginal Hysterectomy, Possible Bilateral Salpingectomy, Possible Right Salpingo-Oophorectomy - Ruben Peng MD Date/Time: 08/08/20 08:49 Surgeon: Ruben Peng MD Pre Op Diagnosis: Enlarged Uterus, Pelvic Pain, Fibroids, Dyspareuni Patient Data Age: 34 Gender: F Height: 5 ft 4 in Weight: 86.2 kg Last Vital Signs Temp 36.2 C L 08/08/20 08:36 Pulse 71 08/08/20 08:36 Resp 18 08/08/20 08:36 BP 117/84 08/08/20 08:36 Pulse Ox 100 08/08/20 08:36 Allergies Allergy/AdvReac Type Severity Reaction Status Date / Time SURGICAL GLUE AdvReac Severe Hives Uncoded 08/08/20 08:14 Home Medications Medication Instructions Recorded Confirmed Type tramadol 50 mg tablet 50 mg PO Q6H PRN 07/25/20 08/08/20 History alprazolam 1 mg PO HS 07/31/20 08/08/20 History bupropion HCl 150 mg PO DAILY 07/31/20 08/08/20 History hydrocodone-acetaminophen 1 tablet PO Q4H PRN #30 tablet 08/08/20 Rx Patient hx anesthesia problems: none Family hx anesthesia problems: none PMFSH Past Medical History Medical History Anxiety Arm fracture, left Meningitis Subchorionic hematoma UTI (urinary tract infection) Wrist fracture Multiple Surgical History Surgical History Hx of tonsillectomy Family History Family History Grandparent Breast cancer Diabetes mellitus Pancreatic cancer Lung cancer Social History Social History Years smoked: 13 Smoking status: Former smoker Smoking end date: 01/23/19 Alcohol intake: current Drinks per week: 5 Substance use: never Substance use type: does not use Living arrangements: with family Gender identity (if verbalized by the patient): Female Spiritual care concerns: No Anes - Eval Final PreProcedure Day of Procedure 08/08/20 08:49 Patient weight: obese Heart: regular rate and rhythm Lungs: clear to auscultation Airway: Mallampati scale class II Neurological: alert and oriented Last oral intake: >/= 8 hours ASA classification: II Emergent: no Anesthetic plan: proceed Anesthesia type and monitoring: general ETT and standard monitoring Informed Consent: The patient's anesthetic plan and its attendant risks and benefits were discussed with the patient/family/POA. Questions were solicited and answers provided to the satisfaction of the patient/family/POA.
[2020-08-08] MEDS: ceFAZolin 2 GM/D5W 50 ML 2 GM/50 ML BAG IVPB (09:15)
--- NOTE | 2020-08-08 10:21 | P.OP_ITS ---
Procedure Note - Detailed Date of procedure: 08/08/20 Pre-op diagnosis: Enlarged Uterus, Pelvic Pain, Fibroids, Dyspareuni Surgeon: Ruben Peng MD Postop diagnosis: Enlarged uterus/pelvic pain/fibroids/dyspareunia/right hydrosalpinx Procedure: Robotic total vaginal hysterectomy and bilateral salpingectomy Anesthesia: General endotracheal EBL: 50cc Complications: Findings: Enlarged uterus with large vascular. Tubes status post tubal ligation. A right hydrosalpinx. Normal-appearing ovaries. Description of procedure: The patient was prepped and draped in the normal sterile fashion placed in dorsal lithotomy position. Under excellent general endotracheal anesthesia weighted speculum placed posterior fornix vagina. Anterior lip of the cervix was grasped with a single-tooth tenaculum in the uterus sounded to 10cm. Serial dilatation with fragmented dilators performed followed by passage of the 8. ABHIJIT and the 3 and half cold cup. Next the 16 Samoan catheter was placed in the bladder draining clear fluid. The weighted speculum was removed and gloves were changed. A supraumbilical incision made and Veress needle passed in the abdomen. The abdomen filled with CO2 gas [id number]. The 8mm trocar advanced in the abdomen and downside visualized. No injury seen the patient placed in Trendelenburg and right and left lateral quadrant incisions made. The 8mm trocars were advanced under direct visualization assuring injury. Right upper quadrant incision made the 10mm trocar advanced under direct visualization assuring no injury. The robot was docked Attention was turned to the awake overnight counselor. The left round ligament was grasped, burned, cut. Anteriorly a bladder flap was formed sharply dissecting across perineum peritoneum and to the this was brought to the opposite round ligament. This was clamped, burned, cut. Next portion of the left fallopian tube was sharply dissected and left attached to the uterus. Hydrosalpinx was seen on the right in the attached portion was dissected away from the ovary. The left utero-ovarian ligament was then skeletonized. It was clamped, burned, cut and brought to the level of the previously cut round ligament pain conserving the right ovary is 11 normal the utero-ovarian ligament was clamped, burned, cut and brought to the level previously cut round ligament. Next the cardinal broad ligaments was skeletonized brought down lateral edge of the uterus these were serially clamped, burned, cut. These were brought down until the uterine vessels could be seen on the left there were large and tortuous these were individually clamped, burned, cut. In like fashion the cardinal and broad ligaments on the right were serially skeletonized. These were clamped, burned, cut and brought down lateral edge of the uterus. The uterine vessels on the right were serially skeletonized clamped, burned, cut. Excellent blanching the uterus was noted. Colpotomy incision was made in the uterus cervix and portions of tube removed through the vagina. Pedicles appeared dry. The vagina was closed with continuous running 0V lock from lateral edge to lateral edge back to the midline. Irrigation undertaken until clear and the raw area sprinkled with the hematuria. The robot was undocked. The gas removed from the abdomen. Trocars removed and the incisions closed with 4. Steri-Strips were used as she is allergic to the. The instruments removed from the vagina. The patient was awakened and went to recovery in satisfactory condition. Sponge, needle instrument counts were correct. There were no immediate complications noted
[2020-08-08] MEDS: fentaNYL CITRATE INJ (*CRX) 100 MCG/2 ML VIAL 25 MCG IV PUSH ×7 (11:06→12:12)
[2020-08-08] MEDS: ONDANSETRON INJ 4 MG/2 ML VIAL IV PUSH (11:42)
--- NOTE | 2020-08-08 12:20 | PC.NURSE ---
PT arrived on unit via bed unaccompanied. PT alert and awake and requesting pain medication. PT introductions made and plan of care discussed per post op Growth Hacker surgery, pain management, daily care activities. PT received instructions via one to one discussion, and no barriers to learning identified. PT sole recipient of such instructions and verbalized understanding.
[2020-08-08] MEDS: HYDROcodone/acetaminophen (*CRX) 10-325 MG TABLET 1 TAB PO (13:03)
[2020-08-08] MEDS: DEXTROSE 5%/LACTATED RINGERS 1,000 ML 125 ML IV CONT (13:04)
[2020-08-08] MEDS: KETOROLAC 30 MG/ML VIAL (*BKC) IV PUSH (13:07)
[2020-08-08] MEDS: SIMETHICONE 80 MG TAB.CHEW PO ×4 (13:08→20:55)
[2020-08-08] MEDS: MORPHINE SULFATE (*CRX) 4 MG/ML INJ IV PUSH (13:50)
[2020-08-08] MEDS: PROMETHAZINE HCL 25 MG/ML AMPUL 12.5 MG IV PUSH (14:55)
[2020-08-08] MEDS: oxyCODONE/ACETAMINOPHEN (*CRX) 5-325 MG TABLET 2 TABLET PO ×2 (17:14→20:55)
[2020-08-08] MEDS: DOCUSATE SODIUM 100 MG CAPSULE PO (17:16)
[2020-08-08] MEDS: IBUPROFEN 600 MG TABLET PO (19:09)
[2020-08-08] MEDS: ALPRAZolam (*CRX) 0.5 MG TABLET 1 MG PO (20:54)
[2020-08-09] MEDS: SIMETHICONE 80 MG TAB.CHEW PO ×3 (00:56→08:51)
[2020-08-09] MEDS: IBUPROFEN 600 MG TABLET PO ×2 (00:56→08:51)
[2020-08-09] MEDS: oxyCODONE/ACETAMINOPHEN (*CRX) 5-325 MG TABLET 2 TABLET PO ×3 (00:57→08:51)
[2020-08-09 01:00] VITALS: BP 128/53; PULSE 90; RESP 16; TEMP 36.7
[2020-08-09 05:15] VITALS: BP 113/62; PULSE 81; RESP 16; TEMP 36.3; O2SAT 100
[2020-08-09 05:57] LABS: Basophils Absolute Auto 0.1 K/mm3 (0.0-0.1); Basophils Percent Auto 0.3 % (0.2-1.2); Eosinophils Percent Auto 0.2 % (0-4.4); Hematocrit 38.4 % (37.0-47.0); Hemoglobin 12.6 g/dL (12.0-15.0); Immature Granulocyte Absolute 0.07 K/mm3 (0.00-0.031); Immature Granulocyte Percent A 0.5 % (0-0.5); Lymphocytes Absolute Auto 1.88 K/mm3 (0.9-3.2); Lymphocytes Percent Auto 12.2 % (18.3-44.2); Mean Corpuscular HGB Conc 32.8 g/dl (32-36); Mean Corpuscular Hemoglobin 29.2 pg (26-34); Mean Corpuscular Volume 89.1 fl (80-100); Monocytes Percent Auto 6.7 % (2.6-8.5); Neutrophils Absolute Auto 12.4 K/mm3 (1.3-6.7); Neutrophils Percent Auto 80.1 % (45.5-73.1); Platelet Count Result 266 k/mm3 (150-375); Red Blood Count 4.31 M/mm3 (4.2-5.4); Red Cell Distribution Width 13.5 % (11.5-14.5); White Blood Count 15.5 K/mm3 (4.5-10.0)
--- NOTE | 2020-08-09 07:58 | PM.DS ---
DS: Admitting Diagnosis Admitting Diagnosis Admitting Diagnosis: abnormal uterine bleeding dyspareunia pelvic pain DS: Summary Hospital Course Hospital Course: Kiki Ferrer was admitted for robotic hysterectomy and bilateral salpingectomy for right-sided pain, heavy bleeding, chronic deep dyspareunia and dysmenorrhea.. The above procedure was performed with no complications. She is doing well post op. She states her pain is well controlled with PO medications. She reports minimal bleeding. She is ambulating up to the chair. Her hilton catheter was removed. She is tolerating PO without N/V. She reports passing flatus. Status at Discharge Overall status at discharge: patient is progressing back to baseline Time Spent with Patient Time attestation: Total time spent providing and/or coordinating discharge services: Time spent: Less than 30 minutes Exam Const: General: comfortable and no acute distress Limitations: no limitations Resp: Effort & Inspection: normal respiratory effort Auscultation: clear to auscultation bilaterally Cardio: Rate: regular rate Rhythm: regular rhythm GI: Inspection: non-distended GI Palp: Yes Soft to palpation, Yes Tenderness to palpation present (GI) (milder tenderness to deep palpation) and No Guarding due to palpation present (GI) Auscultation: normal bowel sounds Other: incisions C/D/I covered with dermabond Urinary Catheter: Urinary Catheter: urine clear Skin: General skin exam: normal color Extrem: General: normal to inspection Psych: Mental Status: mental status grossly normal Affect: normal affect DS: Data Data Completed and Pending Pending studies at discharge: Pending at discharge 08/08/20 10:13 Surgical [PTH] Routine Labs on day of discharge: Labs from last 24 hours 08/09/20 05:20 WBC 15.5 H RBC 4.31 Hgb 12.6 Hct 38.4 MCV 89.1 MCH 29.2 MCHC 32.8 RDW 13.5 Plt Count 266 MPV 11.0 H Immature Gran % (Auto) 0.5 Neut % (Auto) 80.1 H Lymph % (Auto) 12.2 L [facility] % (Auto) 6.7 Eos % (Auto) 0.2 Baso % (Auto) 0.3 Lymph # (Auto) 1.88 [place] # (Auto) 1.0 H Eos # (Auto) 0.0 Baso # (Auto) 0.1 Abs Immat Gran (auto) 0.07 H Absolute Neuts (auto) 12.4 H Absolute Nucleated RBC 0.0 Nucleated RBC % 0.0 Discharge Plan Discharge Patient Disposition: Home, Self-Care Patient Instructions: Laparoscopic Hysterectomy (DC) Stand Alone Forms: General Discharge Instructions Follow-up/Referrals: Ruben Peng MD [Physician] - Discharge Medications: New hydrocodone-acetaminophen 5-325 mg tablet 1 tablet PO Q4H PRN (Reason: pain) Qty: 30 RF: 0 No Action alprazolam 1 mg tablet 1 mg PO HS RF: 0 bupropion HCl 150 mg tablet extended release 24 hr 150 mg PO DAILY RF: 0 tramadol 50 mg tablet 50 mg PO Q6H PRN (Reason: Pain) RF: 0
[2020-08-09 08:50] VITALS: BP 112/60; PULSE 73; RESP 20; TEMP 36.7
[2020-08-09] MEDS: ENOXAPARIN 40 MG/0.4 ML SYRINGE SUB-Q (08:50)
[2020-08-09] MEDS: buPROPion HCL XL (24 HR) 150 MG TABCR PO (08:51)
[2020-08-09] MEDS: DOCUSATE SODIUM 100 MG CAPSULE PO (08:51)
--- NOTE | 2020-08-09 10:09 | P.PNAN_ITS ---
Anes - Prog Note Post-Op Date/Time: 08/09/20 10:09 Cardiovascular status: normal Respiratory status: normal Airway patency: baseline Mental status: baseline Post-Op hydration status: normal Vital Signs: Last Vital Signs Temp 36.7 C 08/09/20 08:50 Pulse 73 08/09/20 08:50 Resp 20 08/09/20 08:50 BP 112/60 08/09/20 08:50 Pulse Ox 100 08/09/20 05:15 Pain Score (VAS): 06/04 I/O: Intake & Output 08/08/20 08/09/20 08/09/20 23:59 07:59 15:59 Intake Total 1880 1000 Output Total 1050 850 Balance 830 150 Laboratory Tests 08/09/20 05:20 08/09/20 05:20 WBC 15.5 H RBC 4.31 Hgb 12.6 Hct 38.4 MCV 89.1 MCH 29.2 MCHC 32.8 RDW 13.5 Plt Count 266 MPV 11.0 H Immature Gran % (Auto) 0.5 Neut % (Auto) 80.1 H Lymph % (Auto) 12.2 L [facility] % (Auto) 6.7 Eos % (Auto) 0.2 Baso % (Auto) 0.3 Lymph # (Auto) 1.88 [facility] # (Auto) 1.0 H Eos # (Auto) 0.0 Baso # (Auto) 0.1 Abs Immat Gran (auto) 0.07 H Absolute Neuts (auto) 12.4 H Absolute Nucleated RBC 0.0 Nucleated RBC % 0.0 Post-procedural complaints: none Patient Feedback: Patient satisfied with anesthetic care.
== END 2020-08-09 10:43 | disposition home or self-care (01) ==
LOC: ANHSURGERY 07:52 → ANHOB2 12:32
PROVIDERS: PCP Family Medicine; Visit Provider Obstetrics & Gynecology
PROC: (CPT 58552; principal; 2020-08-08 09:30)
DX: N85.2 Hypertrophy of uterus (principal); R10.2 Pelvic and perineal pain; N94.10 Unspecified dyspareunia; N70.11 Chronic salpingitis; F41.9 Anxiety disorder, unspecified; Z87.891 Personal history of nicotine dependence; E66.9 Obesity, unspecified; Z68.32 Body mass index [BMI] 32.0-32.9, adult
CPT/HCPCS: 58552; S2900; 36415; 85025; 86850; 86900; 86901; 88307; 99199; A9270; C9803; J0690; J1100; J1170; J1200; J1650; J1885; J2250; J2270; J2405; J2550; J2704; J2710; J3010; J7030; J7120; J7121; U0003; U0005

== ENCOUNTER → 2022-03-12 10:50 | Outpatient (CLI) | payer OTHER, SELFPAY ==
--- NOTE | ~2022-03-12 | US_ITS ---
EXAMINATION: US soft tissue head and neck DATE: 03/12/2022 11:10 INDICATION: Neck pain. TECHNIQUE: Multiple grayscale and Doppler ultrasound images of the neck were obtained. COMPARISON: Ultrasound 08/01/2018 FINDINGS: There are normal lymph nodes in the neck bilaterally. No abnormal mass. IMPRESSION: 1. No abnormal mass or lymphadenopathy. Reviewed, dictated and finalized at location A. ICAL CARE REGISTERED NURSE
== END ==
LOC: EXPGOSHRAD 10:52
PROVIDERS: PCP Family Medicine; Visit Provider Family Medicine
DX: M54.2 Cervicalgia (principal)
CPT/HCPCS: 76536